=== PATIENT | male | born 1945 ===

== ENCOUNTER 2016-08-21 15:48 | Observation (INO) | payer MEDICARE, OTHER ==
[~2016-08-21] VITALS: Ht 188 cm; Wt 119.8 kg
--- NOTE | ~2016-08-21 | CATH ---
Cardiac Diagnostic Report Demographics Patient Name CATE Little Gender Male Date of 1945 Age 70 year(s) Patient Number [id number] Date of Study 08/23/2016 Visit Number [id number] Room Number G6317 [place] [id number] Ht 187.96 cm Wt 119.75 kg Referring Delvin Amezcua MD Primary Physician Physician Performing Nimesh Secondary Physician Physician Amaris VILCHIS Diagnostic Nimesh Assisting Physician Physician Amaris VILCHIS Interventional Physician Die Storage Worker Physician Findings and Conclusions Diagnostic Findings and Conclusion LVEDP 9. Mild CAD. Diagnostic Recommendations Aggressive secondary prevention measures. Procedure Description The patient was brought to the diagnostic cardiac catheterization-EP laboratory in the fasting, non-sedated state. Informed consent was obtained in the written and verbal form after the risks and benefits were explained. The patient had no further questions and agreed to proceed. The planned puncture-incision site(s) were shaved and prepped with ChloraPrep and draped in the usual sterile manner. Conscious sedation, supplemental oxygen, and pain control medications were delivered by a registered nurse under physician guidance. Surface ECG rhythm, blood pressure measurement, and pulse oximetry were monitored throughout the procedure. Arterial access. The access site was infiltrated with lidocaine. The vessel was entered with the Seldinger technique. A sheath was advanced into the vessel and used for catheter placement. Selective left coronary angiography. A catheter was advanced into the left coronary vessel ostium under Fluoroscopic guidance. Contrast was injected by hand. Images were obtained in multiple projections. Selective right coronary angiography. A catheter was advanced into the right coronary vessel ostium under fluoroscopic guidance. Contrast was injected by hand. Images were obtained in multiple projections. Left heart catheterization. A catheter was advanced across the aortic valve to the left ventricle under fluoroscopic guidance. Resting hemodynamics were obtained. Arterial artery hemostasis was achieved. The patient was transferred to a regular nursing floor via cart accompanied by a nurse. The patient left the laboratory in stable condition. Procedure Procedure Type Diagnostic procedure:Angiography:, Coronary Angios w/[facility] Indications: Abnormal Stress Test. The procedure was explained in detail to the patient. Risks, complications and alternative treatments were reviewed. Written consent was obtained. Medications Reviewed with Patient prior to Procedure. Angiographic Findings Dominance: Right Cardiac Arteries and Lesion Findings LMCA: Minor Luminal Irregularities. LAD: Type II. Diagonals are small. Lesion on Prox LAD: 20% stenosis . LCx: Minor Luminal Irregularities.2 small branches. RCA: Minor Luminal Irregularities.Large. Coronary Tree Procedure Data Procedure Date Date: 08/23/2016Start: 09:50 AMEnd: 10:14 AM Entry Locations - Retrograde Percutaneous access was performed through the Right Femoral artery (Primary location). A 7 Fr sheath was inserted. Hemostasis was successfully obtained using Angio-Seal STS PLUS ([place]). Closure Comments: Deployed by RT. Alejandra. Procedure Medications Order and Administration + + + +-------+ !Time !Medication !Dosage !Route ! + + + +-------+ !08/23/2016 09:46 AM !Versed !1 mg !I.V. ! + + + +-------08/23/2016 09:48 AM !Fentanyl !50 mcg !I.V. ! + + + +-------+ 08/23/2016 09:51 AM !Oxygen !2 l/min !NC ! + + + +-------+ !08/23/2016 09:53 AM !Oxygen !4 l/min !NC ! + + + +-------+ Devices Used - A6 Fr. BS JR 4 Diag. Catheterwas used for:Right coronary angiography. - A6 Fr. BS JL 4 Diag. Catheterwas used for:Left coronary angiography. Contrast Material - Isovue 93701 ml Fluoroscopy Time: Diagnostic: 4:12 minutes. Total: 4:12 minutes. Fluoroscopy Dose: Diagnostic: 1294 mGy. Total: 1294 mGy. Estimated Blood Loss: 20 ml. Medical History Performed Procedures and Imaging Results - Stress testing with SPECT MPIwas performed. Results were: Positive. Risk/Extent of ischemia was: Intermediate risk. Allergies - No known allergies. Risk Factors The patient risk factors include:treated hypercholesterolemia, treated hypertension, last creatinine: 1.2 mg/dl, creatinine clearance: 94.25 ml/min, prior valve surgery/procedure and dyslipidemia. Admission Data Admission Date: 08/21/2016 Admission Time: 03:48 PM Admit Source: Transfer [facility] care facility Insurance Payors: Medicare. Admission Medications + +------+------+ + + + + !Medication !Dosage!Times !Last !Last !Administered !Comments ! ! ! !Per !Delivery !Delivery ! ! ! ! ! !Day !Date !Time ! ! ! + +------+------+ + + + + !Nitrates (iv! ! ! ! !Yes ! ! !or buccal) ! ! ! ! ! ! ! + +------+------+ + + + + !Aspirin ! ! ! ! !Yes ! ! !(any) ! ! ! ! ! ! ! + +------+------+ + + + + !Statin (any)! ! ! ! !Yes ! ! + +------+------+ + + + + !ARB (any) ! ! ! ! !Yes ! ! + +------+------+ + + + + !Beta Miguel! ! ! ! !Yes ! ! !(any) ! ! ! ! ! ! ! + +------+------+ + + + + !Non-Statin ! ! ! ! !Yes ! ! !(any) ! ! ! ! ! ! ! + +------+------+ + + + + Clinical Evaluation Leading to Procedure - The patient's CAD presentation was assessed as: Unstable angina. - The patient's anginal syndrome during the past two weeks was assessed as: Class IV according to the [place] Cardi[employer] Classification System (CCS). Anti-anginal medications were prescribed during the past two weeks. The medication is: Beta Blockers. Hemodynamics Condition: Rest O2 Consumption: Estimated: 279.51Heart Rate: 66 bpm Pressures (mmHg) +-----+ + !Site !Pressure ! +-----+ + !LV !106/4 ,8 ! +-----+ + !LV !101/4 ,8 ! +-----+ + !AO !109/65 (85) ! +-----+ + !LV !103/2 ,7 ! +-----+ + !AO !98/59 (76) ! +-----+ + Valve Gradients and Areas + +---------+---------+---------+ +---------+ + !Valve !Peak !Mean !Area !Index !Flow !Source ! + +---------+---------+---------+ +---------+ + !Aortic !0 !0 ! ! ! ! ! + +---------+---------+---------+ +---------+ + !Aortic !0 !0 ! ! ! ! ! + +---------+---------+---------+ +---------+ + Shunts Oxygen Values O2 Consumption 279.51 Discharge Data Discharge Date: 08/24/2016 Hospital Status: Inpatient Signatures dtt: Amaris Beavers dtchivo: 08/23/16 0950 Physician Self Edit
--- NOTE | ~2016-08-21 | DS ---
PATIENT'S NAME: HELENA ESPOSITO [facility] AGE: 70 Y [address] ROOM: [place] [address] LOCATION: GPCU ADMIT DATE: 08/21/2016 Discharge Summary DISCHARGE DATE: 08/24/2016 FAMILY PHYSICIAN: Pippa Hargrove MD ATTENDING PHYSICIAN: Amaris Beavers DISCHARGE DIAGNOSES: 1. Possible unstable angina along with prolonged chest pain. 2. Cardiac catheterization revealed mild coronary artery disease. 3. Normal left ventricular end diastolic pressure of 9. 4. Gastroparesis by endoscopy. 5. Hypertension. 6. Elevated cholesterol. 7. Benign prostatic hyperplasia. 8. History of headaches. 9. Elevated TSH which resulted in his thyroid medication dose being upwardly adjusted. 10. Losartan discontinued due to low blood pressure. 11. Statin dose maximized. 12. The patient has a bioprosthetic valve in the mitral position which appears to be functioning well. 13. Atrial fibrillation was not observed when he was in the hospital. 14. History of obstructive sleep apnea. Patient unable to wear a CPAP machine. DISCHARGE MEDICATIONS: 1. Antacid. 2. Baby aspirin 81 mg once a day. 3. Proscar 5 mg a day. 4. Lasix 40 mg a day. 5. Gabapentin 300 mg 3 times a day. 6. Levothyroxine 100 mcg once a day. 7. Metoprolol 25 mg twice a day. 8. Fish oil 1 g twice a day. 9. Omeprazole 20 mg every morning. 10. Potassium chloride 10 mEq twice a day. 11. Seroquel 25 mg a day and 25 mg at bedtime. 12. Zoloft 100 mg 2 in the morning. 13. Aldactone 25 mg in the morning. 14. Oxybutynin 5 mg every morning. 15. Warfarin. 16. Rosuvastatin 40 mg once a day. COURSE IN THE HOSPITAL: The patient had a prolonged chest pain and was hospitalized in [facility] from where he was transferred to [facility] PATIENT'S NAME: HELENA ESPOSITO [facility] AGE: 70 Y [address] ROOM: [place] [address] LOCATION: GPCU ADMIT DATE: 08/21/2016 Discharge Summary DISCHARGE DATE: 08/24/2016 FAMILY PHYSICIAN: Pippa Hargrove MD ATTENDING PHYSICIAN: Amaris Beavers [facility]. He had continued chest pain there which appeared to mostly spontaneously resolve without any actual benefit from nitroglycerin or Lopressor. He is ruled out for [place]. He complained of significant headache for which the hospitalist was consulted and also gastroenterologists were consulted regarding his chest pain as it was slowly becoming clear that we are probably not dealing with cardiac problems. He did have, however, a stress test once he ruled out, which did reveal mid lateral wall ischemia because of which he underwent cardiac catheterization. His cardiac catheterization revealed mild coronary artery disease and normal LVEDP of 9. His EGD revealed gastroparesis. His medications were readjusted and the patient is being discharged home to be followed up as an outpatient with Dr. Knutson who will follow up with his TSH and PT/INR. I have not seen anywhere where he had atrial fibrillation. However, he has been on Coumadin for a number of years and the reason for this is unclear. He is to follow up with me in about a month or so at which time, I will try to dig into that and find out the reasons why he is on Coumadin and see whether he need to be continued on indefinitely as he is currently doing. MD LESLEY CARDOSO/leon /[id number] d: 09/04/16 1637 t: 09/11/16 1349, DISCHARGE SUMMARY
--- NOTE | ~2016-08-21 | ECHO ---
Transthoracic Echocardiography Report (TTE) Demographics Patient Name HELENA ESPOSITO Date of Study 08/22/2016 Patient Number [id number] Visit Number [id number] Date of 1945 Room Number G6317 Gender Male Number Age 70 year(s) Referring Nimesh Glez Automatic Glove Turner And Former Laura Castro RVT Physician Physician Interpreting Nimesh Glez Energy Advisor Physician Supervising Ordering Nimesh Glez MD/SARAH Physician Nurse Stress Podiatrist Assistant Conclusions Contractility Score Summary Normal Left Ventricular contractility was noted. Summary Technically difficult exam. The estimated left ventricular ejection fraction is 55% with normal WM and internal dimension.Mild concentric left ventricular hypertrophy. The left atrium is mildly dilated. The mitral bioprosthesis appears to be functioning properly with a mean gradient of 3 mmHg. Procedure Type of Study TTE procedure:2D Echocardiogram. Procedure Date Date: 08/22/2016 Start: 09:35 AM Study Location: Inpatient Portable Technical Quality: Adequate visualization Appropriate Use Criteria: 8 Patient Status: Routine M-Mode/2D Measurements LV Diastolic Dimension: 4.28 cm LV Systolic Dimension: 2.23 cm LV Septum Diastolic: 1.15 cm LV PW Diastolic: 1.36 cm AO Root Dimension: 2.8 cm AV Cusp Separation: 1.8 cm RV Diastolic Dimension: 4.12 cm LA Dimension: 3.6 cm EF Estimated: 50 % LVOT: 2 cm LVOT VTI: 14.3 cm TAPSE: 2.32 cm LV Stroke volume: 44.9 ml Doppler Measurements AV Peak Velocity: 1.14 m/s MV Peak E-Wave: 1.08 m/s AV Peak Gradient: 5.2 mmHg MV Peak A-Wave: 1.45 m/s AV Mean Gradient: 3 mmHg MV E/A Ratio: 0.74 LVOT Peak Velocity: 0.64 m/s MV P1/2t: 109 msec PV Peak Velocity: 0.93 m/s E' Septal Velocity: 0.05 m/s PV Peak Gradient: 3.48 mmHg E' Lateral Velocity: 0.04 m/s A' Septal Velocity: 0.09 m/s A' Lateral Velocity: 0.08 m/s Findings Left Ventricle Mild concentric left ventricular hypertrophy with normal EF,WM and internal dimension. Right Ventricle Normal right ventricle structure and function. Left Atrium The left atrium is visually mildly dilated.Increased LA pressures. Right Atrium Normal right atrial size. IVC measures 1.26 cm with inspiratory collapse. Mitral Valve The mitral bioprosthesis appears to be stable without any extraneos in its vicinity and functioning properly with a mean gradient of 3 mmHg. Aortic Valve The aortic valve is mildly sclerotic. Tricuspid Valve Normal tricuspid valve structure and function. Pulmonic Valve Normal pulmonic valve structure and function. Pericardial Effusion No evidence of pericardial effusion. Miscellaneous Visualized portions of the aortic root and ascending aorta appear normal in size. Pleural Effusion No evidence of pleural effusion. Contractility Score LV regional wall motion:(0-Non visualized 1-Normal 2-Hypokinesis 3-Akinesis 4-Dyskinesis 5-Aneurysm) Signature dtt: Amaris Beavers dtd: 08/22/16 0935 Physician Self Edit
--- NOTE | ~2016-08-21 | CON ---
PATIENT'S NAME: HELENA ESPOSITO [facility] AGE: 70 Y [address] ROOM: [place] [address] LOCATION: GPCU ADMIT DATE: 08/21/2016 Consultation DISCHARGE DATE: FAMILY PHYSICIAN: PHYSICIAN, UNKNOWN ATTENDING PHYSICIAN: Amarsi Beavers DATE OF CONSULTATION: 08/21/2016 REFERRING PHYSICIAN: DELMY GANT MD REQUESTING PHYSICIAN: Amaris Beavers M.D. CONSULTING PHYSICIAN: Zev Weber M.D. REASON FOR CONSULTATION: Headache. HISTORY OF PRESENT ILLNESS: The patient is a 70-year-old male, who was transferred to [facility] for workup of chest pain. He had an unremarkable EKG and negative troponins at an outside facility. He did receive some nitroglycerin in the course of the day, which resolved his chest pain; but he did develop headache, which at this point has gone away. He is also not on any nitroglycerin right now. In fact, he has no complaints. REVIEW OF SYSTEMS: He denies any nausea, vomiting, or diarrhea, but does admit to not fully characterized chest pain, which will be worked up here. All systems have been reviewed and negative except for pertinent positives mentioned above. PAST MEDICAL HISTORY: Not very clear due to the patient being a poor historian. Apparently, he does have hypertension, hyperlipidemia, and a history of a valve replacement. He is also on Coumadin, though he is not able to tell me why. SOCIAL HISTORY: He denies any active toxic habits. FAMILY HISTORY: Reviewed and is noncontributory. CURRENT MEDICATIONS: 1. Levothyroxine. 2. Losartan. PATIENT'S NAME: HELENA ESPOSITO [facility] AGE: 70 Y [address] ROOM: [address] [place], [place] [address] LOCATION: GPCU ADMIT DATE: 08/21/2016 Consultation DISCHARGE DATE: FAMILY PHYSICIAN: PHYSICIAN, UNKNOWN ATTENDING PHYSICIAN: Amaris Beavers 3. Metoprolol. 4. [place]-3. 5. Omeprazole. 6. Oxybutynin. 7. Potassium chloride. 8. Gabapentin. 9. Furosemide. 10. Finasteride. 11. Atorvastatin. 12. Aspirin. 13. Mylanta. 14. Seroquel. 15. Sertraline. 16. Aldactone. 17. Coumadin. PHYSICAL EXAMINATION: VITAL SIGNS: His blood pressure is 95/55, heart rate is 50 and regular, saturating 96% on room air, afebrile, and respirations are 12. GENERAL APPEARANCE: Well-developed, morbidly obese, elderly male, in no acute distress. NEUROLOGICAL: Nonfocal. EYES: Show pupils are equal and reactive to light. LYMPHATIC: Shows no cervical lymphadenopathy. ENDOCRINE: Shows no thyromegaly. LUNGS: Clear to auscultation. HEART: Heart rate is bradycardic and regular. No appreciable murmurs, gallops, or rubs. GI: Abdomen is soft, nontender, and nondistended. : Reveals no costovertebral angle tenderness. VASCULAR: 2+ pedal pulses. MUSCULOSKELETAL: Unremarkable. PSYCHIATRIC: Does reveal peculiar cognition, mood, and affect. LABORATORY DATA: Review of studies available from [facility] shows a troponin, which is negative. IMPRESSION AND RECOMMENDATIONS: This is a 70-year-old male, who had a transient episode of headache. We will put the patient on Tylenol for headaches as needed. If headaches do become an issue, we could consider a CAT scan of his head, though I believe that these were related to his nitroglycerin use. Additional management will depend on clinical course. We will follow the patient with you. PATIENT'S NAME: HELENA ESPOSITO [facility] AGE: 70 Y [address] ROOM: [place] [address] [facility] ADMIT DATE: 08/21/2016 Consultation DISCHARGE DATE: FAMILY PHYSICIAN: PHYSICIAN, UNKNOWN ATTENDING PHYSICIAN: Amaris Beavers Thank you for allowing us to participate in the care of this gentleman. Time dedicated to this patient encounter is 15 minutes. MD IMELDA WESLEY/leon /[id number] d: 08/22/16 0303 t: 09/06/16 0704, CONSULTATION REPORT
--- NOTE | ~2016-08-21 | HP ---
PATIENT'S NAME: HELENA LIVINGSTON [facility] AGE: 70 Y [address] ROOM: [address] [place] [address] [facility] ADMIT DATE: 08/21/2016 History & Physical DISCHARGE DATE: FAMILY PHYSICIAN: PHYSICIAN, UNKNOWN ATTENDING PHYSICIAN: Amaris Beavers DATE OF SERVICE: A patient of Dr. Knutson. Mr. Livingston is a 70-year-old male, a patient of Dr. Knutson, who presented to the emergency room in [place] on the 21 of August with chest pain that started around 8 o'clock. When he arrived an hour later, his EKG showed no acute ST- segment elevation and his initial troponin was negative. The pain is reportedly a central chest pressure without any radiation or associated features such as sweating, nausea, shortness of breath, or lightheadedness. This was 7 on a scale of 1-10. Initial nitroglycerin under the tongue brought the blood pressure down to about 100 systolic. He was already on warfarin and baby aspirin, so there was no room for starting anticoagulation at this time. He was watched in the emergency room in [place] with repeating EKGs every hour without significant change in the EKG. Repeat troponin 3 hours later was still negative. He is being transferred for further evaluation and management in [place]. History is mostly from his . He has history of intermittent chest pain similar to this for the past 1 or 2 years. Usually goes away very quickly if he sits down and does not last any longer than 30 minutes at the most. But today, it did not go away and so she got concerned and she had him come to the emergency room. The patient is generally active and he mows graveyard with a push mower, at least part of it. He does not have any structured exercise program. He denies any chest pain when he is active and in fact feels better when he is active. He denies any shortness of breath. He is in functional class 2 with no paroxysmal nocturnal dyspnea or orthopnea. He denies any syncope. He has been intermittently dizzy for a year. He was started on prostate medicine recently, which made him fall down because of drop in blood pressure, but has no history of lightheadedness. He denies palpitations and he used to have ankle swelling. The patient has history of hypertension and elevated cholesterol. He denies diabetes, tobacco abuse, or family history of premature coronary artery disease. The patient denies IA. There is no history of rheumatic fever or heart PATIENT'S NAME: HELENA LIVINGSTON [facility] AGE: 70 Y [address] ROOM: [address] [place], [place] [address] [facility] ADMIT DATE: 08/21/2016 History & Physical DISCHARGE DATE: FAMILY PHYSICIAN: PHYSICIAN, UNKNOWN ATTENDING PHYSICIAN: Amaris Beavers murmur. He does not have history of congestive heart failure or atrial fibrillation according to him and his . He had a valve surgery done in 2009 in [place]. In addition, he also has had a suspected peripheral vascular disease evaluated in [place] with a catheterization and was found to have no significant lesions. MEDICATIONS: 1. Aspirin 81 mg a day. 2. Finasteride 5 mg once a day. 3. Fish oil 2 capsules twice a day. 4. Furosemide 80 mg a day. 5. Warfarin 5 mg on Saturday, Saturday, , Saturday, and Saturday; 2.5 mg on Saturday and Saturday. 6. Levothyroxine 75 mcg once a day. 7. Losartan 50 mg a day. 8. Metoprolol 25 mg half a tablet twice a day. 9. Omeprazole 20 mg a day. 10. Oxybutynin 5 mg once a day. 11. Potassium chloride 10 mEq twice a day. 12. Rosuvastatin 20 mg a day. 13. Sertraline 50 mg 4 tablets at bedtime. 14. Aldactone 25 mg a day. ALLERGIES: NO KNOWN DRUG ALLERGIES. PAST MEDICAL HISTORY: 1. Hypothyroidism. 2. Depression. 3. History of appendectomy. SOCIAL HISTORY: The patient is . He denies abusing alcohol. His appetite is good. Weight has gone up lately. Sleep is fair. FAMILY HISTORY: No premature coronary artery disease. REVIEW OF SYSTEMS: A 12-point review of systems revealed the following positives. 1. Headache for the past 2 years and workup has been negative so far. 2. History of heartburns, omeprazole seemed to help. 3. Benign prostatic hypertrophy. PATIENT'S NAME: HELENA LIVINGSTON [facility] AGE: 70 Y [address] ROOM: [address] [place], [place] [address] LOCATION: GPCU ADMIT DATE: 08/21/2016 History & Physical DISCHARGE DATE: FAMILY PHYSICIAN: PHYSICIAN, UNKNOWN ATTENDING PHYSICIAN: Amaris Beavers PHYSICAL EXAMINATION: VITAL SIGNS: His blood pressure is 108/70 in his left upper extremity and 101/70 right upper extremity, heart rate is 70 and regular, respiration is 18, and afebrile. HEENT: Normal. NECK: Supple. No JVD, thyromegaly, lymphadenopathy, or carotid bruit. HEART: PMI is not well located. First and second heart sounds are regular. There are no added sounds or murmurs. CHEST: Clear to auscultation. ABDOMEN: Soft and nontender. EXTREMITIES: Reveal no edema. CENTRAL NERVOUS SYSTEM: Intact. ASSESSMENT: This is a 70-year-old male patient with prolonged chest pain with no evidence of myocardial infarction so far. He continues to have some chest pain at this time. Given his age and risk factors, I would recommend that he be transferred to [place] where he should continue to have his cardiac enzymes followed and additional workup including an echocardiogram done. Tomorrow, he will have a stress test if he rules out our cath and does not if he rules in. I talked to the nursing supervisor sewer system in [place]. I talked to Joao at [facility], who was taking care of him, and the patient and along with his family before transferring him. They are in agreement with the transfer. MD LESLEY CARDOSO/leon /[id number] D: 908 T: 214 HISTORY & PHYSICAL
--- NOTE | ~2016-08-21 | ESTC ---
Cardiac Perfusion Imaging Demographics Patient Name CATE Little Gender Male Patient Number [id number] Race Visit Number [id number] Ethnicity Corporate ID Room Number G6317 Accession Number [id number] Height 74 inches Date of 1945 Weight 264 pounds Interpreting Nimesh Glez Date of study 08/22/2016 Physician Supervising /SARAH NM Technologist Amina Ye Ordering Physician Nimesh Glez Stress Kitty Tillman MD upstream biomanufacturing technician RDCS, RVT Stress ECG Reading Nimesh Glez Nurse Vimal Pierce RN Physician Medications Reviewed with Patient prior to Procedure. Procedure Procedure Type: Nuclear Stress Test:Pharmacological, Lexiscan, Cardiolite Stress Test Procedure Start time: 08/22/2016 08:30 End time: 08/22/2016 09:13 Indications: Chest pain. Risk Factors The patient risk factors include:treated hypercholesterolemia, treated hypertension, family history of premature CAD and dyslipidemia. Conclusions Summary Medium sized ischemia of moderate degree involving the basal 2/3 of the mid lateral wall. LVEF:67%. Normal WM. Stress Protocols Resting ECG RSR Pre-stress physical exam: Un changed. Predicted HR: 148 bpm ECG Findings No ECG changes suggestive of ischemia. Arrhythmias No rhythm abnormality. Symptoms CP. SOB. PANTOJA. LH. Stress Interpretation Lexiscan cardiolite with mildly hypertensive BP response. Had CP,SOB,LH and PANTOJA with Lexiscan which resolved over the next few minutes. EKG:No ischemia. No arrythmias. Imaging Results High risk findings Summed scores - Summed stress score: 14 - Summed rest score: 12 - Summed difference score: 2 Stress ejection Ejection fraction:67 % EDV :124 ml ESV :41 ml Stroke volume :83 ml LV mass :147 gr LV size:Normal Normal LV function Imaging Protocols Rest Stress Isotope:Tc99m Sestamibi IV Isotope: Tc99m Sestamibi IV Isotope dose:14.5 mCi Isotope dose:43.5 mCi Date:08/22/2016 07:15 Date:08/22/2016 09:07 Technique: SPECT Technique: Gated Supine SPECT Supine IV remains in place after procedure. Scan Time:45-60 minutes post Scan Time:45-60 minutes post injection injection Procedure Medications - Regadenoson (Lexiscan) 0.4 mg IV over 10-15 sec. I.V. 0.4 mg. Medications administered per verbal order and read back to physician prior to administration. Medical History Admission Data Admission date: 08/21/2016 Admission Time: 15:48 Hospital Status: Inpatient. Signatures dtt: Amaris Beavers dtd: 08/22/16 0830 Physician Self Edit
--- NOTE | ~2016-08-21 | CON ---
PATIENT'S NAME: HELENA ESPOSITO [facility] AGE: 70 Y [address] ROOM: [place] [address] LOCATION: GPCU ADMIT DATE: 08/21/2016 Consultation DISCHARGE DATE: FAMILY PHYSICIAN: LIZZY HIGGINBOTHAM MD ATTENDING PHYSICIAN: Amaris Beavers DATE OF CONSULTATION: 08/22/2016 REFERRING PHYSICIAN: DELMY GANT MD REFERRING PROVIDER: Amaris Beavers MD. REASON FOR CONSULTATION: Chest pain. HISTORY OF PRESENT ILLNESS: This is a 70-year-old male who was transferred to [facility] for complete workup for chest pain. On admission, he had unremarkable EKG and negative troponins at an outside facility. He did receive nitroglycerin in the course of the day which did resolve his chest pain. He also developed headache which at the point of examination had gone away. In discussion with the patient as well as the patient's who was at bedside, it appears that he had this chest pain intermittently with a number of episodes. He denies any GERD or dysphagia. He is on Protonix. He does state that the pain is in his mid epigastric to his mid chest area. Denies associated with food or activity. He currently denies any chest pain, chest pressure, shortness of breath, or any alarm symptoms. PAST MEDICAL HISTORY: According to medical record, it appears the patient has past medical history of hypertension, hyperlipidemia, history of valve replacement. He is on Coumadin, though unable to tell why he is on Coumadin. SOCIAL HISTORY: The patient is . He denies any tobacco alcohol or illicit drug use. FAMILY HISTORY: The patient's mother of a myocardial infarction at the age of 7272 years old. The patient's father of a myocardial infarction at the age of 7878 years old. ALLERGIES: NO KNOWN MEDICATION ALLERGIES. CURRENT MEDICATIONS: PATIENT'S NAME: HELENA ESPOSITO [facility] AGE: 70 Y [address] ROOM: [place] [address] LOCATION: GPCU ADMIT DATE: 08/21/2016 Consultation DISCHARGE DATE: FAMILY PHYSICIAN: LIZZY HIGGINBOTHAM MD ATTENDING PHYSICIAN: Amaris Beavers Please refer to the medication administration record. REVIEW OF SYSTEMS: A 10-point review of systems was completed. All were negative except for those identified in the history of present illness. PHYSICAL EXAMINATION: GENERAL: A pleasant 70-year-old male, who appears to be in no acute distress. VITAL SIGNS: Temperature of 97.4, pulse of 60, respirations of 20, blood pressure 121/64, oxygen saturation 95% on room air. SKIN: [place], warm, dry. No jaundice. HEENT: Head is normocephalic and atraumatic. Pupils are equal, round, and reactive to light. Sclerae are clear. Nonicteric. Oral mucosa is pink and moist. No thyromegaly. NECK: Soft and supple. CARDIOVASCULAR: Regular. Normal S1, S2. RESPIRATORY: Respirations even and unlabored. LUNGS: Clear to auscultation. ABDOMEN: Soft, round, mildly tender in the midepigastric area. Bowel sounds positive x4 quadrants. MUSCULOSKELETAL: No muscle weakness or atrophy. EXTREMITIES: No clubbing, cyanosis, or edema. NEUROLOGICAL: Grossly nonfocal. LABS AND DIAGNOSTICS: As stated above. EKG has been within normal limits as well as cardiac enzymes. Chemistry panel includes albumin of 3.3, AST of 40, ALT of 55, alkaline phosphatase of 82, total bilirubin 0.6, magnesium of 2.6. Pro-time of 19.8, INR is 1.87, TSH was 7.120. ASSESSMENT AND PLAN: Again, this is a pleasant 70-year-old male who was transferred to [facility] for definitive evaluation of chest pain. The patient will undergo a stress test. If the stress test is negative, we will go forth with an upper endoscopy for evaluation of chest pain. The risks, benefits, and alternatives were discussed with the patient per Dr. Delmy Gant. Further recommendations to be given status post receipt of stress test as well as possible upper endoscopy. Thank you for this consult. CORAZON LEY APRN FOR DELMY GANT MD PATIENT'S NAME: HELENA ESPOSITO [facility] AGE: 70 Y [address] ROOM: [place] [address] LOCATION: [facility] ADMIT DATE: 08/21/2016 Consultation DISCHARGE DATE: FAMILY PHYSICIAN: LIZZY HIGGINBOTHAM MD ATTENDING PHYSICIAN: Amaris Beavers/leon /[id number] d: 08/23/16 1356 t: 09/21/16 0723, CONSULTATION REPORT
[2016-08-21] MEDS ORDERED: MYLANTA (MAG-AL30 ML PO (16:42)
[2016-08-21] MEDS ORDERED: PROSCAR5 MG PO (16:43)
[2016-08-21] MEDS ORDERED: LIPITOR80 MG PO (16:43)
[2016-08-21] MEDS ORDERED: LASIX80 MG PO (16:44)
[2016-08-21] MEDS ORDERED: NEURONTIN300 MG PO (16:44)
[2016-08-21] MEDS ORDERED: LEVOTHROID (S100 MCG PO (16:46)
[2016-08-21] MEDS ORDERED: COZAAR50 MG PO (16:46)
[2016-08-21] MEDS ORDERED: LOPRESSOR25 MG PO (16:47)
[2016-08-21] MEDS ORDERED: K-TAB 10MEQ10 MEQ PO (16:48)
[2016-08-21] MEDS ORDERED: DITROPAN5 MG PO (16:48)
[2016-08-21] MEDS ORDERED: SEROQUEL25 MG PO ×2 (16:49)
[2016-08-21] MEDS ORDERED: ZOLOFT100 MG PO (16:50)
[2016-08-21] MEDS ORDERED: ALDACTONE25 MG PO (16:51)
[2016-08-21] MEDS ORDERED: COUMADIN ** IA5 MG PO ×2 (16:52→16:53)
[2016-08-21] MEDS ORDERED: ASPIRIN LO-DOSE81 MG PO (16:53)
[2016-08-21] MEDS ORDERED: PRILOSEC20 MG PO (16:54)
[2016-08-21] MEDS ORDERED: FISH OIL 1,0001 EAC1 PO (16:54)
[2016-08-22 06:27] LABS: ALBUMIN 3.3 gm/dL (3.5-5.0); ALK PHOS 80 IU/L (33-138); ALT 55 IU/L (12-78); AST 40 IU/L (10-40); CPK 229 IU/L (35-332); MAGNESIUM 2.6 mg/dL (1.8-2.6); TOTAL BILIRUBIN 0.6 mg/dL (0.0-1.5)
[2016-08-22 12:58] LABS: INR - (THERAPEUTIC) 1.87 (0.92-1.07); PROTIME 19.8 SECONDS (9.8-11.4)
[2016-08-22 20:26] LABS: INR - (THERAPEUTIC) 1.74 (0.92-1.07); PROTIME 18.4 SECONDS (9.8-11.4)
[2016-08-23 06:26] LABS: INR - (THERAPEUTIC) 1.53 (0.92-1.07); PROTIME 16.1 SECONDS (9.8-11.4)
[2016-08-23 07:44] LABS: CREATININE 1.2 mg/dL (0.6-1.3)
[2016-08-24] MEDS ORDERED: CRESTOR40 MG PO (15:12)
== END 2016-08-24 17:30 | disposition disaster alternative care site (69) ==
LOC: GPCU 15:48
PROVIDERS: Internal Medicine Gastroenterology; ADMIT Internal Medicine Interventional Cardiology
PROC: 0DJ08ZZ Inspection of Upper Intestinal Tract, Via Natural or Artificial Opening Endoscopic (ICD-10-PCS; principal; 2016-08-24)
DX: I20.0 Unstable angina (principal); K31.84 Gastroparesis; I10 Essential (primary) hypertension; E78.00 Pure hypercholesterolemia, unspecified; E03.9 Hypothyroidism, unspecified; F32.9 Major depressive disorder, single episode, unspecified; N40.0 Benign prostatic hyperplasia without lower urinary tract symptoms; Z95.2 Presence of prosthetic heart valve; Z90.49 Acquired absence of other specified parts of digestive tract; Z79.82 Long term (current) use of aspirin; Z79.899 Other long term (current) drug therapy
CPT/HCPCS: A9500; C1760; G0378; J1644; J2250; J2785; J3010; J7030

== ENCOUNTER → 2016-12-19 | Outpatient (CLI) | payer MEDICARE, OTHER ==
[~2016-12-19] MED LIST: ALDACTONE25 MG PO; ASPIRIN LO-DOSE81 MG PO; COUMADIN ** IA5 MG PO; COZAAR50 MG PO; CRESTOR40 MG PO; DITROPAN5 MG PO; FISH OIL 1,0001 EAC1 PO; K-TAB 10MEQ10 MEQ PO; LASIX80 MG PO; LEVOTHROID (S100 MCG PO; LIPITOR80 MG PO; LOPRESSOR25 MG PO; MYLANTA (MAG-AL30 ML PO; NEURONTIN300 MG PO; PRILOSEC20 MG PO; PROSCAR5 MG PO; SEROQUEL25 MG PO; ZOLOFT100 MG PO
[2016-12-19 11:26] LABS: ALBUMIN 3.6 gm/dL (3.5-5.0)
[2016-12-19 11:28] LABS: TOTAL BILIRUBIN 0.4 mg/dL (0.0-1.5)
== END ==
LOC: LGSOS 10:51
PROVIDERS: Internal Medicine Interventional Cardiology
DX: E78.00 Pure hypercholesterolemia, unspecified (principal)